=== PATIENT | female | born 1955 | race Caucasian/White ===

== ENCOUNTER 2021-06-16 17:40 | Emergency (ER) | payer BC, SELFPAY ==
--- NOTE | ~2021-06-16 | XR_ITS ---
XR knee LT min 4V DATE: 06/16/2021 18:45 INDICATION: Fall. Medial and lateral knee pain TECHNIQUE: 5 views including sunrise and crosstable lateral COMPARISON: None FINDINGS: There is prominent joint space narrowing is periarticular spurring at the patellofemoral holger int consistent with osteoarthritis. There is mild periarticular spurring at the medial and lateral compartments. No fracture or dislocation or joint effusion is detected. No periosteal reaction or bone destruction. No radiopaque intra-articular loose body or chondrocalcinosis. 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
--- NOTE | ~2021-06-16 | XR_ITS ---
XR ankle LT min 3V DATE: 06/16/2021 18:44 INDICATION: Fall. Pain and swelling of left ankle TECHNIQUE: 4 views COMPARISON: None FINDINGS: Minimally displaced trimalleolar fracture of the ankle with mild widening of the medial tib iotalar joint space. There is generalized soft tissue swelling of the ankle. Plantar and minimal posterior calcaneal enthesopathy. IMPRESSION: Trimalleolar fracture of the ankle and medial widening at the tibiotalar joint Reviewed, dictated and finalized at location A. IMPRESSION: Trimalleolar fracture of the ankle and medial widening at the tibio talar joint
[2021-06-16 18:08] VITALS: BP 147/74; PULSE 76; RESP 20; TEMP 36.8; O2SAT 96
--- NOTE | 2021-06-16 18:30 | ED.LOWEXIN ---
HPI - Extremity Injury (Lower) General Chief Complaint: Extremity Injury, Lower Stated Complaint: Possible injury to left Ankle and left Knee Source: patient and family History of Present Illness HPI Narrative: Patient presents with left ankle and knee pain. Patient missed bottom step when carrying items down the stairs. And landed on her left ankle. Related Data Home Medications Medication Instructions Recorded Confirmed amlodipine 5 mg PO DAILY 06/16/21 06/16/21 omeprazole 20 mg PO DAILY 06/16/21 06/16/21 sertraline 50 mg PO BID 06/16/21 06/16/21 Allergies Allergy/AdvReac Type Severity Reaction Status Date / Time No Known Allergies Allergy Verified 06/16/21 18:25 Review of Systems Review of Systems: CONSTITUTIONAL: Denies fever, chills, or sweats. EYES: Denies visual changes, redness, or discharge. ENT: Denies rhinorrhea, congestion, sore throat, or otalgia. CARDIOVASCULAR: Denies chest pain, palpitations, or edema. RESPIRATORY: Denies cough or dyspnea. GASTROINTESTINAL: Denies abdominal pain, nausea, vomiting, or diarrhea. GENITOURINARY: Denies dysuria or hematuria. SKIN: Denies rash or itching. MUSCULOSKELETAL: Denies back pain, joint pain, or myalgia. NEUROLOGIC: Denies headache, numbness, or weakness. PSYCHIATRIC: Denies anxiety or depression. PMFSH Social History Social History Gender identity (if verbalized by the patient): Female Comments At time of signature, agree with nursing past medical, surgical, social and family history. There is no relevant family history pertinent to the presenting complaint Exam Narrative: GENERAL: Well-appearing, well-nourished, and in no acute distress. HEAD: Normocephalic, atraumatic. EYES: PERRLA and EOMI. ENT: Nares clear, no rhinorrhea or epistaxis. Mucous membranes moist. NECK: Supple. CHEST: Clear to auscultation. No respiratory distress. HEART: Regular rate and rhythm. No murmur heard. Normal peripheral pulses. ABDOMEN: Soft, nontender, nondistended, normal active bowel sounds. EXTREMITIES: Normal range of motion. No edema. KNEE EXAM - SKIN INTACT. NO DEFORMITY. NO SIGNIFICANT SWELLING. NORMAL ROM, HAS FULL EXTENSION AND FLEXION. COMPARTMENTS SOFT. NO CALF TENDERNESS. NEGATIVE ANTERIOR, POSTERIOR DRAWER SIGNS ON TEST. NO CREPITUS. DP PULSE, NORMAL CAPILLARY REFILL. NEGATIVE LYLE'S. NEGATIVE ISMAEL'S ANKLE EXAM SKIN INTACT. NORMAL DP PULSE, NORMAL CAP REFILL. NORMAL SENSATION. SKIN: Warm, dry, no rash. NEURO: No focal deficits. Alert and oriented x3. Ramona Coma Scale Eye Opening: Spontaneous 4 Ramona Coma Scale Motor: Obeys Commands 6 Ramona Coma Scale Verbal: Oriented 5 Kiki Coma Scale Total 15 Course Vital Signs Vital signs: Vital Signs Temperature 36.8 C 06/16/21 18:08 Pulse Rate 76 06/16/21 18:08 Respiratory Rate 20 06/16/21 18:08 Blood Pressure 147/74 H 06/16/21 18:08 Pulse Oximetry 96 06/16/21 18:08 Temperature 36.8 C 06/16/21 18:08 Pulse Rate 76 06/16/21 18:08 Respiratory Rate 20 06/16/21 18:08 Blood Pressure 147/74 H 06/16/21 18:08 Pulse Oximetry 96 06/16/21 18:08 Addressed elevated BP today. Today's blood pressure higher than recommended range. Discussed importance of follow -up with PCP and possible retirement effects/cardiovascular events related to HTN. Currently patient denies headache, dizziness, vision changes, CP or shortness of breath. DISCUSSED WITH PATIENT, X-RAY FINDINGS AND THAT X-RAYS WERE NEGATIVE FOR FRACTURE OR DISLOCATIONS. X-RAYS CANNOT RULE OUT TENDON, LIGAMENT, OR SOFT TISSUE STRUCTURE INJURIES AND IF SYMPTOMS PERSIST OR WORSEN, FURTHER EVALUATION MAY BE WARRANTED FOR POTENTIAL IMAGING. ADVISED REST, ICE, COMPRESSION, AND ELEVATION. IF PRESCRIBED ANY MEDICATIONS, TAKE DIRECTED. IF PRESCRIBED MUSCLE RELAXERS, DO NOT DRINK ALCOHOL, DRIVE, OR OPERATE ANY HEAVY MACHINERY WHILE TAKING. INSTRUCTED ON WHEN TO F/U WITH PCP AND CRITICAL RED FLAGS S/S DISCUSSED TO WHEN TO RETURN TO THE
== END 2021-06-16 19:25 | disposition home or self-care (01) ==
PROVIDERS: Emergency Provider Nurse Practitioner Family; PCP Internal Medicine Infectious Disease
DX: S82.852A Displaced trimalleolar fracture of left lower leg, initial encounter for closed fracture (principal); S93.402A Sprain of unspecified ligament of left ankle, initial encounter; S96.912A Strain of unspecified muscle and tendon at ankle and foot level, left foot, initial encounter; S80.02XA Contusion of left knee, initial encounter; W10.9XXA Fall (on) (from) unspecified stairs and steps, initial encounter; I10 Essential (primary) hypertension; F41.9 Anxiety disorder, unspecified
CPT/HCPCS: 29515; 73564; 73610; 99214; G0463